=== PATIENT | female | born 1995 | race Caucasian/White ===

== ENCOUNTER 2019-06-25 19:08 | Observation (INO) | payer BC ==
[2019-06-25] MEDS ORDERED: Sodium Chloride 0.9% 10 ML Syringe FLUSH PRN (19:10)
[2019-06-25] MEDS ORDERED: Misoprostol 200 MCG Tab VAG STA (19:14)
[2019-06-25] MEDS ORDERED: Zolpidem 10 MG Tab PO PRN (19:15)
[2019-06-25] MEDS ORDERED: Lactated Ringers 1,000 ML IV SCH (19:15)
[2019-06-25] MEDS ORDERED: Morphine 2 MG/ML Syringe IVPUSH PRN (19:41)
--- NOTE | 2019-06-25 19:42 | PCM.LDHP ---
L&D History of Present Illness - General Date of Service: 06/25/19 Admit Problem/Dx: Admission Diagnosis/Problem Admission Diagnosis/Problem Source of Information: Patient History Limitations: Reports: No Limitations - History of Present Illness Introduction:: Patient is a 23 y/o at 21 1/7 wks gestation who was seen in clinic today for routine appt and unfortunately had a demise noted measuring 16 weeks. No pain. No bleeding. No other concerns - Related Data Allergies/Adverse Reactions: Allergies Allergy/AdvReac Type Severity Reaction Status Date / Time No Known Allergies Allergy Verified 06/25/19 19:17 Past Medical History [employer] History: Reports: : 1 Para: 0 LMP (Approximate): - Past Surgical History HEENT Surgical History: Reports: Myringotomy w Tube(s), Tonsillectomy Musculoskeletal Surgical History: Reports: Arthroscopic Knee Social & Family History - Tobacco Use Smoking Status *Q: Never Smoker - Alcohol Use Alcohol Use History: No - Recreational Drug Use Recreational Drug Use: No H&P Review of Systems - Review of Systems: Review Of Systems: See Below General: Reports: No Symptoms Pulmonary: Reports: No Symptoms Cardiovascular: Reports: No Symptoms Gastrointestinal: Reports: No Symptoms Genitourinary: Reports: No Symptoms Musculoskeletal: Reports: No Symptoms Psychiatric: Reports: No Symptoms L&D Exam - Exam Exam: See Below - Vital Signs Weight: 75.098 kg - OB Specific Movement: Not Appreciated Heart Tones: Not Rains - De Santiago Score De Santiago Score Cervix Position: Posterior De Santiago Score Consistency: Medium De Santiago Score Effacement: 0-30% De Santiago Score Dilation: Closed De Santiago Score 's Station: -3 De Santiago Score Total: 1 - Exam General: Alert, Oriented, Cooperative Lungs: Clear to Auscultation, Normal Respiratory Effort Cardiovascular: Regular Rate, Regular Rhythm GI/Abdominal Exam: Soft, Non-Tender Genitourinary: Normal external exam Extremities: Normal Inspection - Problem List (1) 21 weeks gestation of SNOMED Code(s): 76174088 ICD Code: Z3A.21 - 21 WEEKS GESTATION OF Status: Acute Current Visit: Yes (2) demise SNOMED Code(s): 214971197 ICD Code: [id number] - Status: Acute Current Visit: Yes Problem List Initiated/Reviewed/Updated: Yes Orders Last 24hrs: Active Orders 24 hr Category Date Time Status Peripheral IV Care [RC] . DIRECTED Care 06/25/19 19:13 Active Up ad [place]evieve [RC] ASDIRECTED Care 06/25/19 19:11 Active Vital Signs [RC] ASDIRECTED Care 06/25/19 19:10 Active Regular Diet [DIET] Diet 06/25/19 Dinner Active ANTICARDIOLIPIN AB, IGG/M, QN [REF] Routine Lab 06/25/19 19:10 Ordered BETA-2 GLYCOPROTEIN I AB,G/M [REF] Routine Lab 06/25/19 19:41 Ordered CBC W/O DIFF,HEMOGRAM [HEME] Routine Lab 06/25/19 19:10 Ordered KLEIHAUER BETKE [BBK] Routine Lab 06/25/19 19:10 Ordered LUPUS ANTICOAGULANT PANEL [REF] Routine Lab 06/25/19 19:10 Ordered PARVOVIRUS B19, HUMAN, IGG/IGM [REF] Routine Lab 06/25/19 19:10 Ordered RAPID PLASMA REAGIN,RPR [CHEM] Routine Lab 06/25/19 19:10 Ordered T4 FREE [CHEM] Routine Lab 06/25/19 19:10 Ordered TSH [CHEM] Routine Lab 06/25/19 19:10 Ordered TYPE AND SCREEN [BBK] Routine Lab 06/25/19 19:10 Ordered Acetaminophen/oxyCODONE [Percocet 325-5 MG] Med 06/25/19 19:15 Active 2 tab PO Q4H PRN Lactated Ringers [Ringers, Lactated] 1,000 ml Med 06/25/19 19:15 Active IV ASDIRECTED Morphine Med 06/25/19 19:41 Ordered 2 mg IVPUSH Q1H PRN Sodium Chloride 0.9% [Saline Flush] Med 06/25/19 19:10 Active 10 ml FLUSH ASDIRECTED PRN Zolpidem [Ambien] Med 06/25/19 19:15 Active 10 mg PO ONETIME PRN miSOPROStoL [Cytotec] Med 06/26/19 01:00 Active 400 mcg VAG Q4H Peripheral IV Insertion Adult [OM.PC] Routine Oth 06/25/19 19:10 Ordered Medication Orders Lactated Ringer's (Ringers, Lactated) 1,000 mls @ 40 mls/hr IV ASDIRECTED MAGO Misoprostol (Cytotec) 400 mcg VAG Q4H MAGO Morphine Sulfate (Morphine) 2 mg IVPUSH Q1H PRN PRN Reason: Pain Oxycodone/Acetaminophen (Percocet 325-5 Mg) 2 tab PO Q4H PRN PRN Reason: Pain (severe 7-10) Sodium Chloride (Saline Flush) 10 ml FLUSH ASDIRECTED PRN PRN Reason: Keep Vein Open Zolpidem Tartrate (Ambien) 10 mg PO ONETIME PRN PRN Reason: Insomnia Assessment/Plan Comment:: Presents for management of demise - 21 weeks by LMP, but measuring ~16 weeks * Labs done including evaluate for demise * Reviewed option of karyotype, declines * Will send placenta for evaluation * 800 mcg vaginal cytotec now and then 400 mcg q 4 hours. AROM when able * Pain management per patient preference * Collection of mementos after delivery as patient desires * Reviewed potential for need of D&C for retained placenta
[2019-06-25] MEDS: Acetaminophen/oxyCODONE 325-5 MG Tab PO PRN (20:37)
[2019-06-25 21:12] VITALS: BP 116/60; PULSE 67
[2019-06-25] MEDS ORDERED: Diphtheria,Pertussis(Acell),Tetanus Vaccine 0.5 ML Syringe IM ONE (21:15)
[2019-06-26] MEDS: Acetaminophen/oxyCODONE 325-5 MG Tab PO PRN (00:46)
[2019-06-26] MEDS ORDERED: Promethazine 25 MG Tab PO PRN (00:54)
[2019-06-26] MEDS ORDERED: Ondansetron 4 MG/2 ML SDV IVPUSH PRN (00:54)
[2019-06-26] MEDS ORDERED: Misoprostol 200 MCG Tab VAG SCH (01:00)
[2019-06-26] MEDS ORDERED: Misoprostol 200 MCG Tab ONE (01:42)
[2019-06-26] MEDS ORDERED: Misoprostol 200 MCG Tab PO STA (01:48)
[2019-06-26] MEDS ORDERED: Ibuprofen 600 MG Tab PO PRN (02:11)
[2019-06-26] MEDS ORDERED: Acetaminophen 325 MG Tab PO PRN (02:11)
--- NOTE | 2019-06-26 02:14 | PCM.SN.2 ---
- Free Text/Narrative Note: 0200 Called by RN at 0140 that patient up to restroom and delivered fetus into toilet. Presented to hospital and asked that patient be given 600 mcg of buccal cytotec. Baby still attached to cord when arrived to hospital. Patient resting on bed. Cord cut. Baby placed in blanket. Patient and significant other declined holding/looking at baby. Did appear that baby had passed several weeks ago given degradation of tissue. Gentle traction eventually placed on cord and patient instructed to push. With this effort placenta expelled fairly quickly. Did appear intact. No lacerations noted. Will monitor for early AM hours. As long as doing well will discharge in AM. She agrees. Desires hospital disposition for baby. Placenta to be sent to Pathology. Kelly Michelle MD
--- NOTE | 2019-06-26 08:05 | PCM.DCSUM1 ---
Discharge Summary - Discharge Data Discharge Date: 06/26/19 Discharge Disposition: Home, Self-Care 01 Condition: Good - Referral to Home Health Primary Care Physician: Kelly Michelle MD - Discharge Diagnosis/Problem(s) (1) 21 weeks gestation of SNOMED Code(s): 81822199 ICD Code: Z3A.21 - 21 WEEKS GESTATION OF Status: Acute (2) demise SNOMED Code(s): 865367481 ICD Code: [id number] - Status: Acute - Patient Summary/Data Complications: None Consults: None Recommended Follow-up Testing/Procedures: Follow up in 3 weeks for check Hospital Course: 23 y/o at 21 1/7 wks by LMP but measuring closer to 16-17 wks who presented for IOL for demise. This was done with cytotec. Did have a vaginal delivery and successful delivery of placenta shortly after delivery of baby. Patient did well afterwards. Was monitored for several hours and found to be stable. Was discharged home on PPD#0 - Patient Instructions Diet: Regular Diet as Tolerated Activity: As Tolerated Activity, Other: Pelvic rest for about 4 weeks Driving: May Drive Today Showering/Bathing: May Shower Showering/Bathing, Other: May Bathe Notify Provider of: Fever, Increased Pain, Swelling and Redness, Drainage, Nausea and/or Vomiting - Discharge Plan *PRESCRIPTION DRUG MONITORING PROGRAM REVIEWED*: No *COPY OF PRESCRIPTION DRUG MONITORING REPORT IN PATIENT RNEY: No Home Medications: Home Meds Acetaminophen [Tylenol] 650 mg PO Q6H PRN tablet 06/26/19 [Rx] Ibuprofen [Motrin] 600 mg PO Q6H PRN tablet 06/26/19 [Rx] Vit #76/Iron,Carb/Fa [Pnv 29-1 Tablet] 1 each PO DAILY 06/26/19 [ History] Patient Handouts: Vaginal Delivery, Loss, Care After Referrals: Kelly Michelle MD [Primary Care Provider] - (3 weeks for check - can be telehealth appt ) - Discharge Summary/Plan Comment DC Time >30 min.: No - Patient Data Vitals - Most Recent: Last Vital Signs Temp 37.3 C 06/25/19 19:10 Pulse 67 06/25/19 19:10 Resp 16 06/25/19 19:10 BP 116/60 06/25/19 19:10 Pulse Ox 98 06/25/19 19:10 Weight - Most Recent: 75.098 kg Lab Results - Last 24 hrs: Laboratory Results - last 24 hr 06/25/19 06/25/19 06/25/19 Range/Units 20:40 20:40 20:40 WBC 9.18 (3.98-10.04) K/mm3 RBC 4.33 (3.98-5.22) M/mm3 Hgb 14.8 (11.2-15.7) gm/dl Hct 42.4 (34.1-44.9) % MCV 97.9 H (79.4-94.8) fl MCH 34.2 H (25.6-32.2) pg MCHC 34.9 (32.2-35.5) g/dl RDW Std Deviation 41.9 (36.4-46.3) fL Plt Count 249 (182-369) K/mm3 MPV 11.3 (9.4-12.3) fl Free T4 0.85 (0.76-1.46) ng/dL TSH 3rd Generation 1.474 (0.358-3.74) uIU/mL RPR Non-reactive (NONREACTIVE) Blood Type Gel Antibody Screen 06/25/19 Range/Units 20:40 WBC (3.98-10.04) K/mm3 RBC (3.98-5.22) M/mm3 Hgb (11.2-15.7) gm/dl Hct (34.1-44.9) % MCV (79.4-94.8) fl MCH (25.6-32.2) pg MCHC (32.2-35.5) g/dl RDW Std Deviation (36.4-46.3) fL Plt Count (182-369) K/mm3 MPV (9.4-12.3) fl Free T4 (0.76-1.46) ng/dL TSH 3rd Generation (0.358-3.74) uIU/mL RPR (NONREACTIVE) Blood Type A POSITIVE Gel Antibody Screen Negative Med Orders - Current: Current Medications Acetaminophen (Tylenol) 650 mg PO Q6H PRN PRN Reason: Pain Ibuprofen (Motrin) 600 mg PO Q6H PRN PRN Reason: Pain Morphine Sulfate (Morphine) 2 mg IVPUSH Q1H PRN PRN Reason: Pain Last Admin: 06/25/19 23:47 Dose: 2 mg Ondansetron HCl (Zofran) 4 mg IVPUSH Q8H PRN PRN Reason: Nausea/Vomiting Last Admin: 06/26/19 01:04 Dose: 4 mg Oxycodone/Acetaminophen (Percocet 325-5 Mg) 2 tab PO Q4H PRN PRN Reason: Pain (severe 7-10) Last Admin: 06/26/19 00:46 Dose: 2 tab Promethazine HCl (Phenergan) 25 mg PO Q6H PRN PRN Reason: Nausea/Vomiting Sodium Chloride (Saline Flush) 10 ml FLUSH ASDIRECTED PRN PRN Reason: Keep Vein Open Discontinued Medications Diphtheria/Tetanus/Acell Pertussis (Adacel) 0.5 ml IM .ONCE ONE Stop: 06/25/19 21:16 Lactated Ringer's (Ringers, Lactated) 1,000 mls @ 40 mls/hr IV ASDIRECTED [facility] [place] Misoprostol (Cytotec) 800 mcg VAG NOW STA Stop: 06/25/19 19:15 Last Admin: 06/25/19 19:36 Dose: 800 mcg Misoprostol (Cytotec) 400 mcg VAG Q4H MAGO Misoprostol (Cytotec) Confirm Administered Dose 600 mcg .ROUTE .STK-MED ONE Stop: 06/26/19 01:43 Misoprostol (Cytotec) 600 mcg PO NOW STA Stop: 06/26/19 01:49 Zolpidem Tartrate (Ambien) 10 mg PO ONETIME PRN PRN Reason: Insomnia
== END 2019-06-26 10:00 | disposition home or self-care (01) ==
LOC: JD.OBCHECK 19:08 → JD.OB 19:13 → JD.OBCHECK 21:00 → JD.OB 21:01
PROVIDERS: ADMIT Obstetrics & Gynecology; ATTEND Obstetrics & Gynecology
DX: O36.4XX1 Maternal care for intrauterine death, fetus 1 (principal); O77.0 Labor and delivery complicated by meconium in amniotic fluid; O20.8 Other hemorrhage in early pregnancy; Z3A.16 16 weeks gestation of pregnancy; Z37.1 Single stillbirth
CPT/HCPCS: 59414; 84439; 84443; 85027; 85460; 86146; 86147; 86592; 86747; 86850; 86900; 86901; 96374; 96375; A9270; G0378; J2270; J2405; 85613; 85730

== ENCOUNTER 2022-04-08 19:46 | Inpatient (IN) | payer OTHER ==
[2022-04-08] MEDS ORDERED: Nalbuphine 10 MG/0.5 ML Syringe IVPUSH PRN (20:02)
[2022-04-08] MEDS ORDERED: Oxytocin/Lactated Ringers 10 UNIT/1,000 ML BAG IV SCH ×2 (20:15)
[2022-04-08] MEDS: Lactated Ringers 1,000 ML IV SCH ×2 (20:20→22:09)
[2022-04-08] MEDS ORDERED: Bupivacaine/fentaNYL/NS 100 ML Bag EPIDUR PRN (20:56)
[2022-04-08] MEDS ORDERED: fentaNYL 100 MCG/2 ML SDV EPIDUR PRN (20:56)
[2022-04-08] MEDS ORDERED: diphenhydrAMINE 50 MG/ML SDV IVPUSH PRN (20:56)
[2022-04-08] MEDS ORDERED: ePHEDrine 50 MG/ML SDV IVPUSH PRN (20:56)
[2022-04-09] MEDS ORDERED: Lidocaine 1% 20 ML MDV INJECT ONE (00:15)
[2022-04-09] MEDS ORDERED: Lidocaine 1% 50 ML MDV ONE (00:25)
[2022-04-09] MEDS ORDERED: Oxytocin/Lactated Ringers 10 UNIT/1,000 ML BAG IV SCH (01:51)
[2022-04-09] MEDS ORDERED: Hydrocortisone Acetate 25 MG Supp RECTAL PRN (01:51)
[2022-04-09] MEDS ORDERED: Witch Hazel Medicated Pads 40/Jar TOP PRN (01:51)
[2022-04-09] MEDS ORDERED: Magnesium Hydroxide 400 MG/5 ML Susp 30 ML Cup PO PRN (01:51)
[2022-04-09] MEDS ORDERED: Benzocaine/Menthol 20%-0.5% Spray 78 GM Cannister TOP PRN (01:51)
[2022-04-09] MEDS ORDERED: Docusate Sodium 100 MG Cap PO PRN (01:51)
[2022-04-09] MEDS: Acetaminophen 325 MG Tab PO PRN ×2 (04:46→13:57)
[2022-04-09] MEDS: Ibuprofen 600 MG Tab PO PRN ×2 (09:00→20:20)
[2022-04-09] MEDS: Prenatal Multivitamin with Calcium/Folic Acid/Iron Tab PO SCH (09:00)
[2022-04-10] MEDS: Ibuprofen 600 MG Tab PO PRN (04:15)
[2022-04-10] MEDS: Prenatal Multivitamin with Calcium/Folic Acid/Iron Tab PO SCH (09:00)
[2022-04-10] MEDS: Acetaminophen 325 MG Tab PO PRN (09:01)
[2022-04-10 11:25] VITALS: BP 123/82; PULSE 72
== END 2022-04-10 10:30 | disposition home or self-care (01) | DRG 807 ==
LOC: JD.OBCHECK 19:46 → JD.OB 19:55 → JD.OBCHECK 20:02 → OBSVTOIN 04-09 00:10 → JD.OB 04-09 00:11
PROVIDERS: ADMIT Obstetrics & Gynecology; ATTEND Obstetrics & Gynecology
PROC: 10E0XZZ Delivery of Products of Conception, External Approach (ICD-10-PCS; principal; 2022-04-09)
PROC: 0UQMXZZ Repair Vulva, External Approach (ICD-10-PCS; 2022-04-09)
PROC: 3E0R3BZ Introduction of Anesthetic Agent into Spinal Canal, Percutaneous Approach (ICD-10-PCS; 2022-04-09)
PROC: 00HU33Z Insertion of Infusion Device into Spinal Canal, Percutaneous Approach (ICD-10-PCS; 2022-04-09)
DX: O48.0 Post-term pregnancy (principal); Z37.0 Single live birth; O69.81X0 Labor and delivery complicated by cord around neck, without compression, not applicable or unspecified; O70.0 First degree perineal laceration during delivery; O71.82 Other specified trauma to perineum and vulva; Z3A.40 40 weeks gestation of pregnancy
CPT/HCPCS: 36415; 51702; 59025; 59409; 85025; 86592; 86850; 86900; 86901; A9270-GY; J2001; J2590; J3490; J7120